=== PATIENT | female | born 1955 | race Caucasian/White ===

== ENCOUNTER → 2018-02-12 | Outpatient (CLI) | payer OTHER | LOC: M.RAD 14:23 | DX: M16.12 Unilateral primary osteoarthritis, left hip (principal) ==

== ENCOUNTER → 2018-08-21 | Outpatient (CLI) | payer OTHER ==
[2018-08-21 21:11] LABS: IgA 82 mg/dL (87-352); IgG 588 mg/dL (700-1600); IgM 49 mg/dL (26-217)
== END ==
LOC: M.LAB 13:49
PROVIDERS: Psychiatry & Neurology Neuromuscular Medicine
DX: F32.9 Major depressive disorder, single episode, unspecified (principal); R20.2 Paresthesia of skin; Z98.890 Other specified postprocedural states

== ENCOUNTER → 2018-08-29 | Outpatient (CLI) | payer OTHER | LOC: M.MRI 07:09 | DX: M47.896 Other spondylosis, lumbar region (principal); R20.2 Paresthesia of skin; F32.9 Major depressive disorder, single episode, unspecified; Z98.890 Other specified postprocedural states ==

== ENCOUNTER → 2019-07-22 | Outpatient (CLI) | payer OTHER | LOC: M.RAD 14:30 | DX: Z12.31 Encounter for screening mammogram for malignant neoplasm of breast (principal); M16.12 Unilateral primary osteoarthritis, left hip; Z78.0 Asymptomatic menopausal state ==

== ENCOUNTER → 2021-04-20 | Outpatient (CLI) | payer OTHER | LOC: M.RAD 09:54 | PROVIDERS: ATTEND Nurse Practitioner Family | DX: Z12.31 Encounter for screening mammogram for malignant neoplasm of breast (principal); N64.89 Other specified disorders of breast ==